=== PATIENT | male | born 1970 | race American Indian/Alaskan Native ===

== ENCOUNTER 2016-03-19 20:11 | Emergency (ER) | payer OTHER | END 2016-03-19 20:37 | disposition left against medical advice (07) | LOC: ED 20:11 | DX: S01.91XA Laceration without foreign body of unspecified part of head, initial encounter (principal) | CPT/HCPCS: 99281 ==

== ENCOUNTER 2017-06-07 16:36 | Outpatient (CLI) | payer OTHER | END 2017-06-07 16:48 | disposition short-term general hospital (02) | LOC: AMB 16:36 | DX: M25.561 Pain in right knee (principal); W17.89XA Other fall from one level to another, initial encounter; Y92.098 Other place in other non-institutional residence as the place of occurrence of the external cause | CPT/HCPCS: A0425; A0427 ==